=== PATIENT | male | born 1965 | race Caucasian/White ===

== ENCOUNTER 2019-03-06 13:44 | Inpatient (IN) | payer MEDICAID, OTHER ==
[~2019-03-06] VITALS: Ht 175.3 cm; Wt 85.0 kg
[~2019-03-06 13:44] MED LIST: ACET325T33 PO; CIPR500T4 PO; HYDR-3609 PO; HYDR-842 PO; METR500T PO; TRIA15CR55 TOP
[2019-03-06] MEDS ORDERED: HYDROmorphONE 0.5 MG/0.5 ML SYG IV STA (17:29)
[2019-03-06] MEDS ORDERED: SOD CHLORIDE 0.9% 1,000 ML IV ONE (17:30)
[2019-03-06] MEDS ORDERED: ONDANSETRON 4 MG INJ IV STA (18:12)
[2019-03-06] MEDS ORDERED: PIPER-TAZO 3.375 GM IV (PMX) 100 ML IVPB ONE (18:30)
[2019-03-06] MEDS ORDERED: NACL 0.9% 3 ML SYG IV SCH (19:00)
[2019-03-06] MEDS ORDERED: morphine 2 MG INJ IV PRN (19:00)
[2019-03-06] MEDS ORDERED: ONDANSETRON 4 MG INJ IV PRN (19:00)
[2019-03-06] MEDS: SOD CHLORIDE 0.9% 1,000 ML IV SCH (19:34)
[2019-03-06 21:12] VITALS: Ht 175.3 cm; Wt 85.0 kg
[2019-03-06 21:58] VITALS: BP 116/76; PULSE 75; RESP 18
[2019-03-06] MEDS ORDERED: morphine 2 MG INJ IV STA (22:19)
[2019-03-06] MEDS: PIPER-TAZO 3.375 GM IV (PMX) 100 ML IVPB SCH (23:07)
[2019-03-07] VITALS (33 sets, daily range): BP systolic 100–155; BP diastolic 65–95; PULSE 68–99; RESP 13–36
[2019-03-07] MEDS: SOD CHLORIDE 0.9% 1,000 ML IV SCH ×2 (02:38→21:49)
[2019-03-07] MEDS: morphine 4 MG/ML VIAL IV PRN ×4 (02:40→16:41)
[2019-03-07] MEDS: PIPER-TAZO 3.375 GM IV (PMX) 100 ML IVPB SCH ×4 (05:28→23:18)
[2019-03-07] MEDS: PANTOPRAZOLE 40 MG INJ IV SCH (05:29)
[2019-03-07] MEDS ORDERED: BUPIVACAINE 0.25%/EPI (SDV) 10 ML INJ ONE (17:34)
[2019-03-07] MEDS ORDERED: LIDOCAINE 1% (MPF) 30 ML INJ ONE (17:34)
[2019-03-07] MEDS ORDERED: HYDROmorphONE 2 MG/ML SYG ONE (17:59)
[2019-03-07] MEDS ORDERED: SUCCINYLCHOLINE CHLORIDE 100 MG/5 ML SYG IV ONE (17:59)
[2019-03-07] MEDS ORDERED: ETOMIDATE 20 MG INJ ONE (17:59)
[2019-03-07] MEDS ORDERED: ROCURONIUM 50 MG INJ ONE (17:59)
[2019-03-07] MEDS ORDERED: FENTAnyl 50 MCG/ML VIAL ONE (17:59)
[2019-03-07] MEDS ORDERED: DESFLURANE 15 MIN ONE (18:00)
[2019-03-07] MEDS ORDERED: CEFAZOLIN 1 GM INJ ONE (18:00)
[2019-03-07] MEDS ORDERED: PROPOFOL 200 MG INJ ONE (18:00)
[2019-03-07] MEDS ORDERED: ACETAMINOPHEN 325 MG TAB PO PRN (18:30)
[2019-03-07] MEDS ORDERED: IBUPROFEN 800 MG TAB PO PRN (18:30)
[2019-03-07] MEDS ORDERED: SUGAMMADEX SODIUM 200 MG/2 ML VIAL IV ONE (18:47)
[2019-03-07] MEDS ORDERED: HYDROmorphONE 1 MG/5 ML IV SYRINGE IV ONE (19:08)
[2019-03-07] MEDS: HYDROmorphONE 1 MG/5 ML IV SYRINGE IV PRN ×4 (19:25→20:33)
[2019-03-07] MEDS ORDERED: TRIMETHOBENZAMIDE 100 MG/ML VIAL IM PRN (19:30)
[2019-03-07] MEDS ORDERED: DIPHENHYDRAMINE 50 MG INJ IV PRN (19:30)
[2019-03-07] MEDS ORDERED: MIDAZOLAM 1 MG/ML 2 ML INJ IV PRN (19:30)
[2019-03-07] MEDS ORDERED: LABETALOL HCL 20MG INJ IV PRN (19:30)
[2019-03-07] MEDS ORDERED: ALBUTEROL 0.083% (NEB) 2.5 MG/3 ML AMP HHN PRN (19:30)
[2019-03-07] MEDS ORDERED: HYDROmorphONE 1 MG/5 ML IV SYRINGE IV PRN (19:30)
[2019-03-07] MEDS ORDERED: FENTAnyl 50 MCG/ML VIAL IV PRN ×2 (19:30)
[2019-03-07] MEDS ORDERED: OXYCODONE/ACETAMINOPHEN (5/325) TAB PO PRN ×2 (19:30)
[2019-03-07] MEDS ORDERED: hydrALAzine 20 MG INJ IV PRN (19:30)
[2019-03-07] MEDS ORDERED: EPHEDrine 25 MG/5 ML SYG IV PRN (19:30)
[2019-03-07] MEDS ORDERED: MEPERIDINE 25 MG INJ IV PRN (19:30)
[2019-03-07] MEDS ORDERED: ONDANSETRON 4 MG INJ IV PRN (19:30)
[2019-03-07] MEDS ORDERED: IPRATROPIUM (NEB) 0.5 MG/2.5 ML AMP HHN PRN (19:30)
[2019-03-07] MEDS: FENTAnyl 50 MCG/ML VIAL IV PRN ×2 (19:40→19:48)
[2019-03-07] MEDS: HYDROmorphONE 0.5 MG/0.5 ML SYG IV PRN (21:52)
[2019-03-08 01:18] VITALS: BP 108/80; PULSE 73; RESP 17
[2019-03-08] MEDS: PIPER-TAZO 3.375 GM IV (PMX) 100 ML IVPB SCH ×4 (05:20→23:29)
[2019-03-08] MEDS: PANTOPRAZOLE 40 MG INJ IV SCH ×2 (05:21→21:03)
[2019-03-08] MEDS: morphine 4 MG/ML VIAL IV PRN ×4 (07:07→23:22)
[2019-03-08 08:04] VITALS: BP 137/86; PULSE 76; RESP 18
[2019-03-08] MEDS: HYDROmorphONE 0.5 MG/0.5 ML SYG IV PRN (14:03)
[2019-03-08 15:27] VITALS: BP 125/85; PULSE 86; RESP 18
[2019-03-08] MEDS: SOD CHLORIDE 0.9% 1,000 ML IV SCH (17:44)
[2019-03-08 20:04] VITALS: BP 138/81; PULSE 85; RESP 17
[2019-03-09 02:37] VITALS: BP 149/90; PULSE 70; RESP 19
[2019-03-09] MEDS: PIPER-TAZO 3.375 GM IV (PMX) 100 ML IVPB SCH ×4 (06:05→23:05)
[2019-03-09] MEDS: morphine 4 MG/ML VIAL IV PRN ×4 (06:05→20:00)
[2019-03-09 08:03] VITALS: BP 140/85; PULSE 68; RESP 18
[2019-03-09] MEDS: PANTOPRAZOLE 40 MG INJ IV SCH ×2 (08:15→20:00)
[2019-03-09] MEDS: SOD CHLORIDE 0.9% 1,000 ML IV SCH (13:58)
[2019-03-09 14:37] VITALS: BP 119/82; PULSE 72; RESP 18
[2019-03-09 19:40] VITALS: BP 114/75; PULSE 74; RESP 18
[2019-03-10] MEDS: morphine 4 MG/ML VIAL IV PRN ×4 (02:21→19:38)
[2019-03-10 02:38] VITALS: BP 133/87; PULSE 70; RESP 17
[2019-03-10] MEDS: PIPER-TAZO 3.375 GM IV (PMX) 100 ML IVPB SCH ×3 (05:12→17:35)
[2019-03-10 08:00] VITALS: BP 111/75; PULSE 71; RESP 16
[2019-03-10] MEDS ORDERED: BARIUM SULFATE 0.1% 450 ML BTL (VOLUMEN) PO ONE ×2 (08:10)
[2019-03-10] MEDS: PANTOPRAZOLE 40 MG INJ IV SCH ×2 (09:19→20:48)
[2019-03-10] MEDS ORDERED: IOHEXOL 100 ML ONE (10:30)
[2019-03-10] MEDS ORDERED: SOD CHLORIDE 0.9% 100 ML ONE (10:30)
[2019-03-10 14:00] VITALS: BP 116/82; PULSE 75; RESP 16
[2019-03-10] MEDS ORDERED: LOPERAMIDE 2 MG CAP PO PRN (18:30)
[2019-03-10 20:08] VITALS: BP 102/71; PULSE 69; RESP 18
[2019-03-11] MEDS: PIPER-TAZO 3.375 GM IV (PMX) 100 ML IVPB SCH ×5 (00:02→23:31)
[2019-03-11 01:58] VITALS: BP 119/82; PULSE 74; RESP 20
[2019-03-11] MEDS: morphine 4 MG/ML VIAL IV PRN ×3 (02:51→21:04)
[2019-03-11 08:20] VITALS: BP 106/76; PULSE 73; RESP 18
[2019-03-11] MEDS: PANTOPRAZOLE 40 MG INJ IV SCH ×2 (09:23→21:02)
[2019-03-11 14:21] VITALS: BP 109/94; PULSE 76; RESP 16
[2019-03-11 20:35] VITALS: BP 116/73; PULSE 71; RESP 16
[2019-03-12 02:02] VITALS: BP 120/76; PULSE 63; RESP 18
[2019-03-12] MEDS: PIPER-TAZO 3.375 GM IV (PMX) 100 ML IVPB SCH ×4 (05:37→23:22)
[2019-03-12 07:59] VITALS: BP 126/83; PULSE 67; RESP 18
[2019-03-12] MEDS: PANTOPRAZOLE 40 MG INJ IV SCH ×2 (09:16→21:31)
[2019-03-12] MEDS: HYDROCODONE/APAP (5/325) TAB PO PRN (09:23)
[2019-03-12 14:15] VITALS: BP 112/73; PULSE 62; RESP 19
[2019-03-12 19:56] VITALS: BP 112/76; PULSE 68; RESP 20
[2019-03-12] MEDS: morphine 4 MG/ML VIAL IV PRN (21:31)
[2019-03-13] VITALS (12 sets, daily range): BP systolic 100–134; BP diastolic 69–90; PULSE 62–73; RESP 15–25
[2019-03-13] MEDS: PIPER-TAZO 3.375 GM IV (PMX) 100 ML IVPB SCH ×4 (05:20→23:52)
[2019-03-13] MEDS: PANTOPRAZOLE 40 MG INJ IV SCH ×2 (08:40→21:24)
[2019-03-13] MEDS: HYDROCODONE/APAP (5/325) TAB PO PRN (12:50)
[2019-03-13] MEDS ORDERED: PROPOFOL 20 ML ONE ×3 (15:24→15:51)
[2019-03-13] MEDS: HYDROCODONE/APAP (10/325) TAB PO PRN (21:24)
[2019-03-14 01:05] VITALS: BP 100/55; PULSE 85; RESP 20
[2019-03-14] MEDS: HYDROCODONE/APAP (10/325) TAB PO PRN (04:31)
[2019-03-14] MEDS: PIPER-TAZO 3.375 GM IV (PMX) 100 ML IVPB SCH (05:42)
[2019-03-14 07:55] VITALS: BP 114/67; PULSE 57; RESP 18
[2019-03-14] MEDS: PANTOPRAZOLE 40 MG INJ IV SCH (08:22)
[2019-03-14] MEDS ORDERED: ENOXAPARIN 40 MG/0.4 ML SYG SC SCH (09:00)
[2019-03-14 13:55] VITALS: BP 105/72; PULSE 62; RESP 18
[2019-03-14] MEDS ORDERED: metroNIDAZOLE 500 MG TAB PO SCH (14:00)
[2019-03-14] MEDS ORDERED: CIPROFLOXACIN 500 MG TAB PO SCH (18:00)
== END 2019-03-14 18:03 | disposition home or self-care (01) | DRG 425 ==
LOC: E/R 13:44 → MS3 18:36
PROVIDERS: ADMIT Internal Medicine; ATTEND Internal Medicine
PROC: 0DNU4ZZ Release Omentum, Percutaneous Endoscopic Approach (ICD-10-PCS; principal; 2019-03-07 18:00)
PROC: 0DB98ZX Excision of Duodenum, Via Natural or Artificial Opening Endoscopic, Diagnostic (ICD-10-PCS; 2019-03-13)
DX: K80.00 Calculus of gallbladder with acute cholecystitis without obstruction (principal); K76.89 Other specified diseases of liver; K31.4 Gastric diverticulum; N40.0 Benign prostatic hyperplasia without lower urinary tract symptoms; D64.9 Anemia, unspecified; R97.8 Other abnormal tumor markers; E78.1 Pure hyperglyceridemia; Z79.1 Long term (current) use of non-steroidal anti-inflammatories (NSAID)
CPT/HCPCS: 36415; 74177; 74181; 76705; 80053; 80061; 81003; 82378; 83036; 83690; 83735; 84100; 84443; 85025; 85610; 85730; 86301; 86704; 86709; 86803; 87045; 87205; 87340; 88305; 93970; 96374; C9113; J0690; J1170; J1650; J2250; J2270; J2405; J2543; J3010; J7030; Q9967

== ENCOUNTER 2019-03-26 08:06 | Emergency (ER) | payer MEDICAID ==
[~2019-03-26] VITALS: Ht 175.3 cm; Wt 78.3 kg
[2019-03-26 08:08] VITALS: BP 111/63; PULSE 73; RESP 18; Ht 175.3 cm; Wt 78.3 kg
[2019-03-26] MEDS ORDERED: DEXAMETHASONE 4 MG TAB PO ONE (08:30)
[2019-03-26] MEDS ORDERED: hydrOXYzine HCL 25 MG TAB PO ONE (08:30)
== END 2019-03-26 08:50 | disposition home or self-care (01) ==
LOC: FTE 08:06
DX: L30.9 Dermatitis, unspecified (principal); Z87.891 Personal history of nicotine dependence
CPT/HCPCS: Z7502; Z7610; 99283

== ENCOUNTER 2019-05-25 13:31 | Emergency (ER) | payer MEDICAID ==
[~2019-05-25] VITALS: Ht 175.3 cm; Wt 81.8 kg
[~2019-05-25 13:31] MED LIST changes: +BEN25 PO
[2019-05-25 13:41] VITALS: BP 107/79; PULSE 67; RESP 18; Ht 175.3 cm; Wt 81.8 kg
[2019-05-25] MEDS ORDERED: DEXAMETHASONE 10 MG/ML 1 ML INJ IM ONE (14:30)
== END 2019-05-25 14:17 | disposition home or self-care (01) ==
LOC: FTE 13:31
DX: R21 Rash and other nonspecific skin eruption (principal); Z87.891 Personal history of nicotine dependence
CPT/HCPCS: 96372; J1100; Z7502